=== PATIENT | female | born 1935 | race Caucasian/White ===

== ENCOUNTER → 2016-09-21 | Outpatient (CLI) | payer MEDICARE, OTHER ==
[~2016-09-21] MED LIST: OMNIPAQUE 350 MG/ML, 100ML BOTTLE ONE
== END | disposition home or self-care (01) ==
LOC: CFH 14:30
PROVIDERS: ATTEND Family Medicine
DX: M48.56XA Collapsed vertebra, not elsewhere classified, lumbar region, initial encounter for fracture (principal); M47.896 Other spondylosis, lumbar region; M51.37 Other intervertebral disc degeneration, lumbosacral region; N85.8 Other specified noninflammatory disorders of uterus; G89.29 Other chronic pain; N83.8 Other noninflammatory disorders of ovary, fallopian tube and broad ligament
CPT/HCPCS: 74178; 82565; Q9967

== ENCOUNTER → 2018-08-15 | Outpatient (CLI) | payer MEDICARE, OTHER ==
[~2018-08-15] MED LIST changes: +AMLO-150 PO; +LISI-170 PO; +METF500T17 PO; -OMNIPAQUE 350 MG/ML, 100ML BOTTLE ONE
[2018-08-15 10:30] LABS: ALBUMIN 3.8 g/dL (3.4-5.0); ANION GAP 5 mmol/L (5-15); CALCIUM 9.2 mg/dL (8.5-10.1); CHLORIDE 104 mmol/L (98-107)
[2018-08-15 10:33] LABS: ALANINE AMINOTRANSFERASE 20 U/L (12-78); ALKALINE PHOSPHATASE 137 U/L (45-117); BILIRUBIN,TOTAL 0.9 mg/dL (0.2-1.0); CREATININE 0.95 mg/dL (0.55-1.02); TOTAL PROTEIN 8.4 g/dL (6.4-8.2)
== END | disposition home or self-care (01) ==
LOC: STAR 09:04
PROVIDERS: ATTEND Surgery
DX: Z01.812 Encounter for preprocedural laboratory examination (principal); C50.812 Malignant neoplasm of overlapping sites of left female breast
CPT/HCPCS: 36415; 80053; 93005